=== PATIENT | female | born 1990 | race Caucasian/White ===

== ENCOUNTER 2019-01-22 15:08 | Inpatient (IN) ==
[2019-01-22] MEDS ORDERED: ONDANSETRON 4 MG/2 ML VIAL IV PRN (15:48)
[2019-01-22] MEDS ORDERED: BUTORPHANOL 2 MG/ML VIAL IV PRN (15:48)
[2019-01-22] MEDS ORDERED: DINOPROSTONE VAG GEL 10 MG SYRINGE VAG ONE (15:49)
[2019-01-22 16:27] LABS: Basophils % 0.2 % (0.0-0.8); Eosinophils # 0.1 10*3/uL (0.0-0.87); Eosinophils % 0.8 % (0.00-10.9); Hematocrit 38.1 VOL% (35.7-47.0); Hemoglobin 12.1 GM/DL (12.0-16.0); Immature Granulocytes % 0.6 %; Immature Granulocytes Absolute 0.07 #; Lymphocytes # 1.7 10*3/uL (1.4-4.0); Lymphocytes % 14.4 % (21.3-54.2); Mean Corpuscular HGB Conc 31.8 GM/DL (32-36); Mean Corpuscular Hemoglobin 30 PG (27-34); Mean Corpuscular Volume 94.3 FL (87-102); Monocytes # 0.4 10*3/uL (0.11-0.8); Monocytes % 3.6 % (1.7-12.7); Neutrophils # 9.5 10*3/uL (1.4-7.4); Neutrophils % 80.4 % (38.7-73.9); Platelet Count 270 T/CUMM (130-400); Red Blood Count 4.04 MC/CUMM (3.8-5.5); Red Cell Distribution Width 14.4 % (9.3-17.3); White Blood Count 11.8 T/CUMM (4-12)
[2019-01-22] MEDS ORDERED: ALUMINUM/MAGNES/SIMETH MAX STR 30 ML UDCUP PO PRN (16:33)
[2019-01-22] MEDS ORDERED: diphenhydrAMINE 50 MG/1 ML VIAL ONE (16:48)
[2019-01-22] MEDS ORDERED: diphenhydrAMINE 50 MG/1 ML VIAL IV ONE (16:49)
[2019-01-22] MEDS: LACTATED RINGERS 1,000 ML IV SCH ×2 (16:51→21:48)
[2019-01-22 17:07] LABS: Alanine Aminotransferase 12 U/L (13-56); Albumin 2.5 G/DL (3.4-5.0); Alkaline Phosphatase 211 U/L (45-117); Aspartate Amino Transferase 14 U/L (0-37); Bilirubin,Total < 0.39 MG/DL (0.2-1.0); Blood Urea Nitrogen 8 MG/DL (7-18); Calcium 8.1 MG/DL (8.5-10.1); Glucose 91 MG/DL (74-106); Osmolality,Calculated 278.3 MOS/KG (273-304); Potassium 3.4 MMOL/L (3.5-5.1); Sodium 141 MMOL/L (136-145); Total Protein 6.5 G/DL (6.4-8.3); Uric Acid 5.8 MG/DL (2.6-6.0)
[2019-01-22] MEDS: MEPERIDINE 50 MG/1 ML VIAL IV PRN ×2 (20:20→22:30)
[2019-01-22] MEDS ORDERED: ePHEDrine 50 MG/ML AMP IV PRN (22:39)
[2019-01-22] MEDS ORDERED: NALOXONE 0.4 MG/ML VIAL IV PRN (22:39)
[2019-01-22] MEDS ORDERED: FAMOTIDINE 20 MG/2 ML VIAL IV ONE (22:40)
[2019-01-22] MEDS ORDERED: CITRIC ACID/SODIUM CITRATE 30 ML UDCUP PO ONE (22:40)
[2019-01-22] MEDS ORDERED: fentaNYL 2 MCG/ROPIV 0.2% EPID 100 ML EPIDURAL SCH (23:00)
[2019-01-23] MEDS ORDERED: AMPICILLIN INJ 2,000 MG in SODIUM CHLORIDE 0.9% 100 ML IV ONE (03:01)
[2019-01-23] MEDS ORDERED: OXYTOCIN/LR 30 UNIT/1,000 ML BAG IV ONE (03:02)
[2019-01-23] MEDS ORDERED: miSOPROStol 200 MCG TABLET ONE (03:03)
[2019-01-23] MEDS ORDERED: LIDOCAINE 1% 50 ML VIAL ONE (03:03)
[2019-01-23] MEDS ORDERED: METHYLERGONOVINE 0.2 MG/1 ML AMP ONE (03:04)
[2019-01-23] MEDS ORDERED: CARBOPROST TROMETHAMINE 250 MCG/ML AMP IM ONE (03:04)
[2019-01-23] MEDS ORDERED: AMPICILLIN 2,000 MG VIAL ONE (03:05)
[2019-01-23] MEDS ORDERED: SODIUM CHLORIDE 0.9% 100 ML IV ONE (03:06)
[2019-01-23] MEDS ORDERED: OXYTOCIN/LR 20 UNIT/1,000 ML BAG IV ONE ×2 (04:55→05:04)
[2019-01-23] MEDS ORDERED: BENZOCAINE 20%/MENTHOL 0.5% SPRAY 56 GM CAN TOP PRN (05:04)
[2019-01-23] MEDS ORDERED: LANOLIN 50% CREAM 0.3 OZ TUBE TOP PRN (05:04)
[2019-01-23] MEDS ORDERED: BISACODYL 10 MG SUPP RECTAL PRN (05:04)
[2019-01-23] MEDS ORDERED: WITCH HAZEL PADS 100/JAR TOP PRN (05:04)
[2019-01-23] MEDS ORDERED: ONDANSETRON 4 MG/2 ML VIAL IV PRN (05:04)
[2019-01-23] MEDS ORDERED: RHO(D) IMMUNE GLOBULIN 300 MCG SYRINGE IM ONE (05:04)
[2019-01-23] MEDS ORDERED: MEASLES/MUMPS/RUBELLA VACCINE 0.5 ML VIAL SUBCUT ONE (05:04)
[2019-01-23] MEDS ORDERED: ACETAMINOPHEN 325 MG TABLET PO PRN (05:04)
[2019-01-23] MEDS ORDERED: HYDROCORTISONE 2.5% RECTAL CREAM 30 GM TUBE TOP PRN (05:04)
[2019-01-23] MEDS ORDERED: DIPH/TET/ACEL PERT BOOSTER VACCINE 0.5 ML VIAL IM ONE (05:04)
[2019-01-23] MEDS: IBUPROFEN 800 MG TABLET PO PRN ×3 (05:39→19:51)
[2019-01-23] MEDS: oxyCODONE/ACETAMINOPHEN 5-325 MG TABLET PO PRN ×4 (06:45→22:41)
[2019-01-23] MEDS: DOCUSATE SODIUM 100 MG CAPSULE PO SCH ×3 (11:47→23:17)
[2019-01-23] MEDS ORDERED: AZITHROMYCIN 250 MG TABLET PO ONE (16:13)
[2019-01-23] MEDS ORDERED: ONDANSETRON 4 MG TABLET PO PRN (19:36)
[2019-01-24] MEDS: IBUPROFEN 800 MG TABLET PO PRN (04:20)
[2019-01-24] MEDS: oxyCODONE/ACETAMINOPHEN 5-325 MG TABLET PO PRN (04:20)
[2019-01-24 05:10] LABS: Basophils % 0.3 % (0.0-0.8); Eosinophils # 0.2 10*3/uL (0.0-0.87); Eosinophils % 1.5 % (0.00-10.9); Hematocrit 32.2 VOL% (35.7-47.0); Hemoglobin 10.4 GM/DL (12.0-16.0); Immature Granulocytes % 0.7 %; Lymphocytes # 3.5 10*3/uL (1.4-4.0); Lymphocytes % 23.7 % (21.3-54.2); Mean Corpuscular HGB Conc 32.3 GM/DL (32-36); Mean Corpuscular Hemoglobin 30 PG (27-34); Mean Corpuscular Volume 94.2 FL (87-102); Mean Platelet Volume 10.8 FL (9.6-12.0); Monocytes # 0.8 10*3/uL (0.11-0.8); Monocytes % 5.2 % (1.7-12.7); Neutrophils # 10.2 10*3/uL (1.4-7.4); Neutrophils % 68.6 % (38.7-73.9); Platelet Count 264 T/CUMM (130-400); Red Blood Count 3.42 MC/CUMM (3.8-5.5); Red Cell Distribution Width 14.8 % (9.3-17.3); White Blood Count 14.8 T/CUMM (4-12)
[2019-01-24 08:00] VITALS: BP 101/57
[2019-01-24] MEDS: DOCUSATE SODIUM 100 MG CAPSULE PO SCH (08:43)
== END 2019-01-24 16:30 | disposition home or self-care (01) | DRG 560 ==
LOC: N.LDOUT 15:08 → N.LD 15:09 → N.OB 01-23 09:08
PROVIDERS: ADMIT Obstetrics & Gynecology; ATTEND Obstetrics & Gynecology